=== PATIENT | female | born 1970 | race Caucasian/White ===

== ENCOUNTER 2021-10-31 09:40 | Day surgery (SDC) | payer BC | END 2021-10-31 11:50 | disposition home or self-care (01) | LOC: CSHSDC/OP 09:40 | PROVIDERS: ATTEND Physician Assistant | DX: Z23 Encounter for immunization (principal); U07.1 COVID-19 | CPT/HCPCS: 96365; J3490; M0243; Q0244 ==

== ENCOUNTER 2023-08-04 08:59 | Outpatient (CLI) | payer BC | END 2023-08-04 09:00 | disposition home or self-care (01) | LOC: CSHMAMMO 08:59 | PROVIDERS: ATTEND Obstetrics & Gynecology | DX: Z12.31 Encounter for screening mammogram for malignant neoplasm of breast (principal) | CPT/HCPCS: 77063; 77067 ==